=== PATIENT | male | born 1945 | race Caucasian/White ===

== ENCOUNTER → 2019-05-07 | Outpatient (CLI) | payer OTHER ==
[~2019-05-07] VITALS: Ht 188 cm; Wt 104.3 kg
[~2019-05-07] MED LIST: TRAMADOL HCL50 MG PO; TYLENOL325 M1 PO
[2019-05-07 09:55] LABS: HEMATOCRIT 44.8 % (42.0-52.0); HEMOGLOBIN 15.8 gm/dL (14.0-18.0); MCH 31.8 pg (26.0-34.0); MCHC 35.3 g/dL (28.0-37.0); RBC 4.98 mil/uL (4.50-6.00); RDW 13.4 % (10.5-14.5); WBC 7.2 thou/uL (4.0-11.0)
[2019-05-07 09:58] VITALS: BP 149/75
[2019-05-07 10:02] LABS: CALCIUM 9.6 mg/dL (8.5-10.1); CREATININE 1.2 mg/dL (0.7-1.3); POTASSIUM 3.7 mmol/L (3.5-5.1)
[2019-05-07 10:06] LABS: INR 1.1
[2019-05-07 11:11] VITALS: BP 148/74
[2019-05-07 11:19] VITALS: BP 119/60
[2019-05-07 11:25] VITALS: BP 144/61
[2019-05-07 11:30] VITALS: BP 147/67
== END | disposition home or self-care (01) ==
LOC: SPEC 09:08
PROVIDERS: Radiology Diagnostic Radiology
DX: M71.38 Other bursal cyst, other site (principal); K21.9 Gastro-esophageal reflux disease without esophagitis; Z82.49 Family history of ischemic heart disease and other diseases of the circulatory system; Z98.890 Other specified postprocedural states; Z79.899 Other long term (current) drug therapy